=== PATIENT | male | born 1995 | race African-American/Black ===

== ENCOUNTER 2022-10-14 23:00 | Inpatient (IN) ==
[2022-10-14 23:25] LABS: ABS Eosinophils 0.1 10^3/uL (0.0-0.5); ABS Lymphocytes 2.2 10^3/uL (1.0-4.8); ABS Monocytes 0.4 10^3/uL (0.0-1.1); ABS Nucleated RBC 0.02 10^3/ul; Eosinophil % 1.9 %; Hematocrit 42.9 % (38-53); Hemoglobin 15.1 g/dL (13.2-16.3); Lymphocyte % 28.4 %; Mean Corpuscular Hemoglobin 27.6 pg (27-33); Mean Corpuscular Hgb Conc 35.1 g/dL (31-36); Mean Corpuscular Volume 78.5 fL (80-97); Mean Platelet Volume 8.9 fL (7.5-11.2); Nucleated Red Blood Cells % 0.2 /100 WBC (0.0-0.4); Platelet Count 218 10^3/uL (150-450); Red Blood Count 5.47 10^6/uL (4.06-5.63); Red Cell Distribution Width 12.6 % (12-17); White Blood Count 7.7 10^3/uL (3.6-10.2)
[2022-10-14 23:34] LABS: INR 1.15 (0.88-1.18)
[2022-10-15 00:33] LABS: Albumin 4.5 g/dL (3.2-5.2); Albumin/Globulin Ratio 1.9 (1-3); Calcium 9.2 mg/dL (8.6-10.3); Creatinine, Serum 1.13 mg/dL (0.67-1.17); Globulin 2.4 g/dL (2-4); Potassium 3.8 mmol/L (3.5-5.0); Total Bilirubin 0.7 mg/dL (0.2-1.0); Total Protein 6.9 g/dL (6.4-8.9); eGFR CKD-EPI 90.8 (>60)
[2022-10-15 00:49] LABS: High Sensitivity Troponin 1 Hr 232 pg/mL (<20)
[2022-10-15] MEDS ORDERED: Heparin DRIP 25,000 UNITS BAG 25,000 UNITS/500 ML BAG IV SCH (01:00)
[2022-10-15] MEDS ORDERED: Iohexol 350 (CONTRAST) 500 ML MDV IV ONE (01:30)
[2022-10-15] MEDS: Heparin 5000 UNITS/ML 1 mL VIAL IV SCH ×2 (01:37→14:47)
[2022-10-15 02:02] LABS: Activated Partial Thrombo Time 34.2 seconds (26.0-38.0)
[2022-10-15 06:15] LABS: Calcium 8.2 mg/dL (8.6-10.3); Potassium 3.5 mmol/L (3.5-5.0)
[2022-10-15 06:19] LABS: Creatinine, Serum 0.87 mg/dL (0.67-1.17); eGFR CKD-EPI 120.5 (>60)
[2022-10-15 09:38] LABS: Erythrocyte Sed Rate 15 mm/Hr (0-14)
[2022-10-15 14:22] LABS: C Reactive Protein 2.94 mg/L (<8.01)
[2022-10-15 15:16] LABS: High Sensitivity Troponin 3 Hr 20 pg/mL (<20)
[2022-10-15] MEDS: Enoxaparin 40 MG/0.4 ML SYR SUBCUT SCH (20:31)
[2022-10-16] MEDS: Enoxaparin 40 MG/0.4 ML SYR SUBCUT SCH (21:42)
[2022-10-17 06:09] VITALS: BP 126/73
[2022-10-17 12:19] LABS: HDL Cholesterol 60.8 mg/dL
== END 2022-10-17 14:07 | disposition home or self-care (01) | DRG 313 ==
LOC: ED 23:00 → EDHOLD 23:00 → SUATTDRO 10-15 03:55 → EDHOLD 10-15 07:32 → MEDTELE 10-15 08:40 → SUATTDRO 10-15 12:57
PROVIDERS: ADMIT Hospitalist; ATTEND Internal Medicine